=== PATIENT | female | born 2000 | race Caucasian/White ===

== ENCOUNTER 2023-08-04 13:13 | Emergency (ER) | payer MEDICAID, SELFPAY ==
--- NOTE | ~2023-08-04 | CT_ITS ---
EXAMINATION: CT abdomen pelvis w IV con CLINICAL INFORMATION: Reason for Exam Lower abd pain, blood bowel movements COMPARISON: No prior CT available for comparison. TECHNIQUE: Multidetector volumetric imaging was performed from the superior aspect of the liver through the pubic symphysis 85 mL of Omnipaque 350 injected Sagittal and coronal reformatted images were obtained on the technologist's workstation. This CT examination was performed using dose optimization techniques as appropriate, variously including the following: *Automated exposure control *Adjustment of mA and/or kV according to patient size (this includes techniques or standardized protocols for targeted exams where dose is matched to indication/reason for exam; i.e. extremities or head) *Use of iterative reconstruction technique DLP: 362 mGy-cm FINDINGS: LOWER THORAX: Included lung bases are clear. HEPATOBILIARY: No focal hepatic lesions. No biliary ductal dilatation. GALLBLADDER: Gallbladder unremarkable. SPLEEN: Spleen is normal in size. PANCREAS: No focal mass or ductal dilatation. STOMACH AND GASTROINTESTINAL TRACT: Stomach is grossly unremarkable. There is no bowel distention or thickening. No CT evidence of appendicitis. ADRENALS: No adrenal nodules. KIDNEYS/URETERS: No hydronephrosis, stones or solid mass lesions. URINARY BLADDER: Partially decompressed. PELVIC VISCERA: Right adnexal pelvic cyst most likely of right ovarian origin 5.5 x 4.6 cm. Bulky uterus normal for patient's young age. Rectum and perirectal fat are clear. PERITONEUM: No free air or fluid. LYMPH NODES: No lymphadenopathy. VASCULAR:Abdominal aorta normal in size, no aneurysm found. BONES, ABDOMINAL WALL AND SOFT TISSUES: Age-appropriate changes of the spine and skeletal system, no destructive osteolytic or osteosclerotic bone lesion found CT/CT abdomen pelvis w IV con IMPRESSION: 1. No CT evidence of acute intra-abdominal process to explain patient's pain symptoms. No evidence of diverticulitis. No evidence of bowel obstruction. No free air or fluid. 2. Right adnexal pelvic cyst 5.5 cm most likely of right ovarian origin. Consider correlation with follow-up pelvic ultrasound. Findings likely represent a probable benign cyst. Recommend followup ultrasonography in 3-6 months.
[2023-08-04 13:25] VITALS: BP 102/67; PULSE 74; RESP 18; TEMP 36.6; O2SAT 99; BMI 19.6
--- NOTE | 2023-08-04 13:52 | ED.ABDPAIN ---
HPI - Abdominal Pain General Chief Complaint: Abdominal Pain Stated Complaint: Abd pain sent from urgent care Time Seen by Provider: 08/04/23 17:51 History of Present Illness HPI narrative: 22 y/o F patient; without significant PMH or PSH; presents with report of one week of bright red bowel movements. Associated with nausea without vomiting, lower abdominal cramping, and combination constipation/loose diarrhea. The patient states she had similar symptoms once before several months ago but it resolved within a short period so she did not seek further evaluation. The patient has never had a colonoscopy. She is currently followed by a PCP but has not yet seen them since her move to this area recently. She denies smoking, alcohol use, or recreational drug use. She is currently menstrating x1 day. Related Data Allergies Allergy/AdvReac Type Severity Reaction Status Date / Time No Known Allergies Allergy Verified 08/04/23 13:26 Review of Systems Review of Systems Yes all other systems are reviewed and are negative PMFSH Past Medical History Attestation statement: The following information was validated with the patient. Source: unable to obtain and old records reviewed Social History Social History Unable to assess alcohol history related to: Unknown Smoked in Last 30 Days: No Use of substances other than those prescribed or required for medical reasons: No Advance Directives: No Advance Directives Information Provided: No Do you have a plan to hurt others: No Plan Patient : No Physical Exam ED Vital Signs: Vital Signs - 24 hr 08/04/23 13:25 08/04/23 20:52 Temperature 97.9 F 97.9 F Pulse Rate 74 65 Respiratory Rate 18 16 Blood Pressure 102/67 109/64 Pulse Oximetry 99 98 Oxygen Delivery Method Room Air Room Air BMI result Body Mass Index 19.6 Patient is afebrile and hemodynamically stable. Const General: cooperative HENMT Head: Yes normal to inspection and Yes atraumatic Eyes General: appearance normal, both eyes and all related structures Pupils: Equal, round and reactive pupils present EOM: EOMs intact bilaterally Neck Neck: Yes normal visual inspection, Yes full ROM, Yes supple and No tender Chest Chest palpation & inspection: normal inspection of the chest and normal palpation of entire chest wall Resp Effort & Inspection: normal respiratory effort, able to speak in complete sentences and no respiratory distress Auscultation: clear to auscultation bilaterally Cardio Rate: regular rate Rhythm: regular rhythm Peripheral pulses: Peripheral pulses 2+ throughout GI Other: RLQ and LLQ abdominal tenderness with suprapubic tenderness Inspection: No Abdominal wall edema and No distended Palpation (GI): Soft to palpation, not firm, no guarding and not rigid Neuro Cranial nerves: Yes Equal, round and reactive pupils present Course Course Course Narrative: This is an RME done by WENDI Lu: Additional HPI, ROS, PE not included below will be deferred to primary provider. 22 year old female w/o known pmhx presents w/ abd pain, constipation and bloody stools x 1 week was told to come in to the ED by an urgent care. Appearance: Alert.? Oriented X3.? No acute cardiopulmonary distress distress.? Head: Normocephalic, atraumatic, no step-offs or deformities Neck: Normal inspection.? Neck supple.? CVS: Pulses normal.? Respiratory: No respiratory distress.? Skin: ? Normal skin color. Extremities: 5/5 strength to bilateral upper and lower extremities Neuro: Oriented X 3.? No motor deficit.? No sensory deficit. Reevaluation(s) Reevaluation #1: Patient is afebrile and hemodynamically stable. Reviewed laboratory studies. Mild leukopenia 4.7. Mild anemia 11.8 (unclear baseline but patient states she has required oral iron supplementation previously). Elevated eosinophils. Ordered CT Abdomen/Pelvis. CT without acute abnormalities. Patient already expressed understanding of known right adnexal pelvic cyst. Patient has appointment with PCP in mid-August, recommended patient call Monday08/06/2023 to arrange earlier appointment. Patient is hemodynamically stable with only mild anemia. Appropriate for out-patient follow up but reviewed the signs/symptoms for which to return to the emergency department. Plan: Discharge to home with PCP and GI follow up Return precautions given Medical Decision Making Lab Data 08/04/23 14:01 08/04/23 14:01 Labs: Lab Results 08/04/23 Range/Units 14:01 WBC 4.7 L (4.8-10.8) X10*3/uL RBC 3.71 L (4.20-5.50) X10*6/uL Hgb 11.8 L (12.0-16.0) g/dl Hct 33.0 L (37.0-47.0) % MCV 88.9 (80.0-98.0) fL MCH 31.8 (27.0-33.0) pg MCHC 35.8 H (31.0-35.0) g/dl RDW 12.4 (11.0-16.0) % Plt Count 279 (160-400) X10*3/uL MPV 9.6 (9.4-12.3) fL Immature Gran % (Auto) 0.2 (0.0-0.4) % Neut % (Auto) 52.8 (45-73) % Lymph % (Auto) 35.0 (20-40) % [place] % (Auto) 5.6 (2-11) % Eos % (Auto) 5.8 H (0-4) % Baso % (Auto) 0.6 (0-2) % Lymph # (Auto) 1.6 (1.2-4.9) X10*3/uL [place] # (Auto) 0.3 (0.1-1.2) X10*3/uL Eos # (Auto) 0.3 (0.0-0.4) X10*3/uL Baso # (Auto) 0.0 (0.0-0.2) X10*3/uL Abs Immat Gran (auto) 0.01 (0.00-0.03) X10*3/uL Absolute Neuts (auto) 2.5 (2.0-8.3) x10*3/uL Absolute Nucleated RBC 0.000 (0.0-0.012) X10*3/uL Nucleated RBC % (auto) 0.0 (0.0-0.2) /100WBC PT 12.0 (11.1-13.3) SEC INR 1.0 (0.9-1.1) Sodium 141 (135-145) mmol/L Potassium 4.0 (3.3-5.1) mmol/L Chloride 106 (96-108) mmol/L Carbon Dioxide 26 (22-29) mmol/L Anion Gap 13 (12-20) BUN 6 L (9-16) mg/dL Creatinine 0.69 (0.5-1.4) mg/dL Estim Creat Clear Calc 106.2 Estimated GFR > 60 Random Glucose 92 (60-115) mg/dL Calcium 9.3 (8.4-10.2) mg/dL Magnesium 2.1 (1.6-2.6) mg/dL Total Bilirubin 0.6 (0.0-1.0) mg/dL AST 20 (5-31) U/L ALT 15 (0-31) U/L Alkaline Phosphatase 47 (39-117) U/L Total Protein 7.6 (6.5-8.0) g/dL Albumin 4.5 (3.5-5.0) g/dL Lipase 23 (8-78) U/L Beta HCG, Quant < 2 mIU/mL Radiology Impression Discussion of test interpretation with radiology: I have reviewed the radiologist's reading. Radiologist Impression: EXAMINATION: CT abdomen pelvis w IV con CLINICAL INFORMATION: Reason for Exam Lower abd pain, blood bowel movements COMPARISON: No prior CT available for comparison. TECHNIQUE: Multidetector volumetric imaging was performed from the superior aspect of the liver through the pubic symphysis 85 mL of Omnipaque 350 injected Sagittal and coronal reformatted images were obtained on the technologist's workstation. This CT examination was performed using dose optimization techniques as appropriate, variously including the following: *Automated exposure control *Adjustment of mA and/or kV according to patient size (this includes techniques or standardized protocols for targeted exams where dose is matched to indication/reason for exam; i.e. extremities or head) *Use of iterative reconstruction technique DLP: 362 mGy-cm FINDINGS: LOWER THORAX: Included lung bases are clear. HEPATOBILIARY: No focal hepatic lesions. No biliary ductal dilatation. GALLBLADDER: Gallbladder unremarkable. SPLEEN: Spleen is normal in size. PANCREAS: No focal mass or ductal dilatation. STOMACH AND GASTROINTESTINAL TRACT: Stomach is grossly unremarkable. There is no bowel distention or thickening. No CT evidence of appendicitis. ADRENALS: No adrenal nodules. KIDNEYS/URETERS: No hydronephrosis, stones or solid mass lesions. URINARY BLADDER: Partially decompressed. PELVIC VISCERA: Right adnexal pelvic cyst most likely of right ovarian origin 5.5 x 4.6 cm. Bulky uterus normal for patient's young age. Rectum and perirectal fat are clear. PERITONEUM: No free air or fluid. LYMPH NODES: No lymphadenopathy. VASCULAR:Abdominal aorta normal in size, no aneurysm found. BONES, ABDOMINAL WALL AND SOFT TISSUES: Age-appropriate changes of the spine and skeletal system, no destructive osteolytic or osteosclerotic bone lesion found CT/CT abdomen pelvis w IV con IMPRESSION: 1. No CT evidence of acute intra-abdominal process to explain patient's pain symptoms. No evidence of diverticulitis. No evidence of bowel obstruction. No free air or fluid. 2. Right adnexal pelvic cyst 5.5 cm most likely of right ovarian origin. Consider correlation with follow-up pelvic ultrasound. Findings likely represent a probable benign cyst. Recommend followup ultrasonography in 3-6 months. Medications Administered Discontinued Medications Generic Name Dose Route Start Last Admin Trade Name Freq PRN Reason Stop Dose Admin Iohexol 100 ml 08/04/23 18:22 08/04/23 18:23 Iohexol 350 Mg/Ml 100 Ml Infus..Btl IV 08/04/23 18:23 85 ml ONCE ONE Administration Discharge Plan Discharge Clinical Impression: Bright red rectal bleeding Patient Disposition: Home, Self-Care Instructions: Rectal Bleeding (ED) Additional Instructions: As we discussed, you were seen today for lower abdominal cramping and bleeding from your rectum. Your CT scan showed only your known right ovarian cyst. It did not show a reason for your rectal bleeding. Recommend you call your PCP on Monday08/06/2023 to arrange an earlier re-evaluation. Return immediately to the emergency department for: Lightheadedness/passing out Worsening abdominal pain Inability to eat or drink due to pain or nausea [place] [facility] [place] [facility] [place] Group] - 1 week Print Language: Liberian
[2023-08-04 14:08] LABS: MANUAL DIFF FLAG NO
[2023-08-04 14:09] LABS: Basophils Percent Auto 0.6 % (0-2); Eosinophils Absolute Auto 0.3 X10*3/uL (0.0-0.4); Eosinophils Percent Auto 5.8 % (0-4); Hemoglobin 11.8 g/dl (12.0-16.0); Imm Gran Abs Auto 0.01 X10*3/uL (0.00-0.03); Imm Gran Pct Auto 0.2 % (0.0-0.4); Lymphocytes Absolute Auto 1.6 X10*3/uL (1.2-4.9); Mean Corpuscular HGB Conc 35.8 g/dl (31.0-35.0); Mean Corpuscular Hemoglobin 31.8 pg (27.0-33.0); Mean Corpuscular Volume 88.9 fL (80.0-98.0); Mean Platelet Volume 9.6 fL (9.4-12.3); Monocytes Absolute Auto 0.3 X10*3/uL (0.1-1.2); Monocytes Percent Auto 5.6 % (2-11); Neutrophils Absolute Auto 2.5 x10*3/uL (2.0-8.3); Neutrophils Percent Auto 52.8 % (45-73); Platelet Count 279 X10*3/uL (160-400); Red Blood Count 3.71 X10*6/uL (4.20-5.50); Red Cell Distribution Width 12.4 % (11.0-16.0); White Blood Count 4.7 X10*3/uL (4.8-10.8)
[2023-08-04 14:35] LABS: Alanine Aminotransferase 15 U/L (0-31); Albumin Level 4.5 g/dL (3.5-5.0); Alkaline Phosphatase 47 U/L (39-117); Anion Gap 13 (12-20); Aspartate Amino Transferase 20 U/L (5-31); Bilirubin Total 0.6 mg/dL (0.0-1.0); Blood Urea Nitrogen 6 mg/dL (9-16); Calcium 9.3 mg/dL (8.4-10.2); Carbon Dioxide 26 mmol/L (22-29); Chloride 106 mmol/L (96-108); Creatinine Clr Calc Pharmacy 106.2; Estimated Glomerular Filt Rate > 60; Glucose Random 92 mg/dL (60-115); Magnesium 2.1 mg/dL (1.6-2.6); Sodium 141 mmol/L (135-145); Total Protein 7.6 g/dL (6.5-8.0)
[2023-08-04 14:36] LABS: HCG Quantitative < 2 mIU/mL
[2023-08-04] MEDS: iohexoL 350 MG/ML 100 ML INFUS..BTL IV (18:23)
[2023-08-04 18:33] LABS: Lipase 23 U/L (8-78)
[2023-08-04 20:52] VITALS: BP 109/64; PULSE 65; RESP 16; TEMP 36.6; O2SAT 98
[2023-08-04 21:14] VITALS: BP 109/64; PULSE 65; RESP 16; TEMP 36.6; O2SAT 98
== END 2023-08-04 21:19 | disposition home or self-care (01) ==
PROVIDERS: Physician Assistant; Emergency Provider Emergency Medicine
DX: K62.5 Hemorrhage of anus and rectum (principal); R11.0 Nausea; K59.00 Constipation, unspecified; R10.9 Unspecified abdominal pain
CPT/HCPCS: 36415; 74177; 80053; 83690; 83735; 84702; 85025; 85610; 99284; Q9967

== ENCOUNTER 2023-09-01 12:25 | Outpatient (AMB) | payer MEDICAID, SELFPAY ==
--- NOTE | 2023-09-01 12:32 | A.OFFVIS_ITS ---
Vital Signs 09/01/23 12:41 Height 5 ft 5 in Weight 117 lb 4.575 oz BMI 19.5 BP 105/51 L Blood Pressure Location Rt brachial Position Sitting Pulse 84 Intake Visit Reasons: ER follow up Intake Note: Ángela presents to in office visit today as a new patient for ER follow up. CC: Patient went to the ER on 08/03 with c/o one week of bright red blood with bowel movements. Associated with nausea, lower abdominal cramping, and combination constipation/loose diarrhea. The patient stated that she had similar symptoms once before several months ago but it resolved within a short period so she did not seek further evaluation. Today she reports that she continues having sometimes constipation sometimes and other times diarrhea, abdominal cramping, occasional GERD, and abdominal cramps, Independent Crop Consultant Required: No Allergies No Known Allergies Allergy (Verified 09/01/23 12:53) HPI HPI ER follow up: Details: 23-year-old female here for initial evaluation of rectal bleeding. She has referred by the emergency department because she has not yet established a primary care. She will see Dr. Nelson in the near future. P.m. X Anemia - takes ironpills SURGICAL HISTORY Pt denies * ALLERGIES: NKDA * [employer] LABS: Laboratory Tests 08/04/23 14:01 WBC 4.7 L RBC 3.71 L Hgb 11.8 L Hct 33.0 L MCV 88.9 MCH 31.8 Plt Count 279 Estimated GFR > 60 Total Bilirubin 0.6 AST 20 ALT 15 Alkaline Phosphatase [address] ABDOMEN AND PELVIS 08/04/23 FINDINGS: LOWER THORAX: Included lung bases are clear. HEPATOBILIARY: No focal hepatic lesions. No biliary ductal dilatation. GALLBLADDER: Gallbladder unremarkable. SPLEEN: Spleen is normal in size. PANCREAS: No focal mass or ductal dilatation. STOMACH AND GASTROINTESTINAL TRACT: Stomach is grossly unremarkable. There is no bowel distention or thickening. No CT evidence of appendicitis. ADRENALS: No adrenal nodules. KIDNEYS/URETERS: No hydronephrosis, stones or solid mass lesions. URINARY BLADDER: Partially decompressed. PELVIC VISCERA: Right adnexal pelvic cyst most likely of right ovarian origin 5.5 x 4.6 cm. Bulky uterus normal for patient's young age. Rectum and perirectal fat are clear. PERITONEUM: No free air or fluid. LYMPH NODES: No lymphadenopathy. VASCULAR:Abdominal aorta normal in size, no aneurysm found. BONES, ABDOMINAL WALL AND SOFT TISSUES: Age-appropriate changes of the spine and skeletal system, no destructive osteolytic or osteosclerotic bone lesion found CT/CT abdomen pelvis w IV con IMPRESSION: 1. No CT evidence of acute intra-abdominal process to explain patient's pain symptoms. No evidence of diverticulitis. No evidence of bowel obstruction. No free air or fluid. 2. Right adnexal pelvic cyst 5.5 cm most likely of right ovarian origin. Consider correlation with follow-up pelvic ultrasound. Findings likely represent a probable benign cyst. Recommend followup ultrasonography in 3-6 months. REVIEW OF ER NOTES 08/04/2023 Additional Instructions: As we discussed, you were seen today for lower abdominal cramping and bleeding from your rectum. Your CT scan showed only your known right ovarian cyst. It did not show a reason for your rectal bleeding. Recommend you call your PCP on Monday08/06/2023 to arrange an earlier re- evaluation. Return immediately to the emergency department for: Lightheadedness/passing out Worsening abdominal pain Inability to eat or drink due to pain or nausea CORRESPONDENCE On 08/29/23 @ 09:51 Pipe Petit Wrote To SheelaToshia Per patient she has an appointment on 09/07 to establish care with Dr. Pennington. Previously use to live in [place]. PCP information added to chart. On 08/28/23 @ 14:05 Toshia Coker Wrote To Pipe Petit Please call this patient and find out who her primary care provider is. According to the ER note she is supposed to see a new primary in mid August and we will need this information. She is on my schedule for Monday. On 08/28/23 @ 13:58 Toshia Coker Wrote To SheelaToshia (2) The ER note states that she has an initial primary care appointment in ?mid August. ? I would call the patient 1st and find out who will be her primary care provider. I certainly can see her but this is not an emergency since she was completely stable and there were no acute findings on CT scan. This likely is a hemorrhoid issue. On 06/10/24 @ 11:28 Su Wallis Wrote To Sheela,June June this pt was seen in ED and does not have PCP she is on scheduled for the . will you see her? TODAY'S VISIT She has had a few episodes of rectal bleeding. She was bleeding for a whole week and the entire bowel was red. She had CIC and was pushing/straining with her stools prior to the onset of sx. She would have abd cramping in the lower abd with nausea. She had another episode 2 weeks after the ER. Now she is moving her bowels every am and some RB with wiping. She has always suffered CIC. She has tried to eat more fiber. She takes iron pills so this may cause CIC. I recommend senna and fiber Benefiber or Citrucel or generic. She had a paternal uncle of CRC, father had hemorrhoids. Return office visit in 6 weeks to evaluate and titrate her constipation therapy. [facility] Surgical History No pertinent past surgical history Family History Sister Eye cancer Bladder cancer Social History Alcohol intake: never Patient Tobacco Use Status: Never used Tobacco Review of Systems Const Denies fatigue, Denies fever(s), Denies night sweats, Denies poor appetite and Denies weight loss ENT Reports Normal hearing present, Denies dental pain, Denies dysphagia, Denies hearing loss, Denies mouth pain, Denies odynophagia, Denies throat swelling, Denies tongue swelling and Reports other (Dentition adequate) Card Reports no additional complaints Resp Reports no additional complaints GI Details: Denies abdominal pain, Denies melena, Denies bloating, Reports hematochezia, Reports constipation, Denies GI cramping, Denies dysphagia, Denies excessive flatus, Denies early satiety, Denies heartburn, Denies diarrhea, Denies nausea, Denies odynophagia, Denies vomiting and Denies hematemesis Skin/Breast Denies pruritus, Denies lesions, Denies rash and Denies jaundice Neuro Reports Normal hearing present and Denies Abnormal speech present Endo Denies fatigue Aller/Immun Denies throat swelling and Denies tongue swelling Physical Exam Vital Signs: Last Vital Signs Pulse 84 09/01/23 12:41 BP 105/51 L 09/01/23 12:41 BMI result Body Mass Index 19.5 Const General: cooperative, no acute distress, well developed and well groomed Nutritional Appearance: average body habitus and well nourished Orientation/consciousness: oriented to person, oriented to place and oriented to time Limitations: No language barrier HEENT Head: Yes normocephalic and Yes atraumatic Eyes General: appearance normal, both eyes and all related structures Pupils: Equal, round and reactive pupils present Neck Neck: Yes normal visual inspection and Yes no lymphadenopathy Thyroid: Thyroid normal Resp Effort & Inspection: normal respiratory effort and able to speak in complete sentences Auscultation: clear to auscultation bilaterally Cardio Rate: regular rate Rhythm: regular rhythm Heart sounds: Normal, physiologic split S2 sound present Peripheral pulses: radial pulses present and posterior tibial pulses present GI Inspection: No distended and No Abdominal panniculus present Palpation (GI): Soft to palpation, nontender, no guarding, not rigid and No hepatosplenomegaly present Percussion: Yes normal to percussion Auscultation: normal bowel sounds Rectal Exam - Female: deferred Skin General skin exam: no rashes or lesions noted, turgor normal, skin not dry, no jaundice, No spider nevi and no striae Rashes: no rashes Nails: normal Neuro General: oriented to person, oriented to place and oriented to time Cranial nerves: Yes Equal, round and reactive pupils present and Yes Normal hearing present Speech: No Abnormal speech present Extrem General: Yes normal to inspection, No clubbing, No cyanosis and No edema Psych Appearance: grossly normal and well kempt Mental Status: mental status grossly normal Speech and movement: Normal speech and movement present Affect: normal affect Attitude: cooperative Thought process: Normal thought process present and not confabulating Thought content: Normal thought content present Insight: Limited insight present (Psych) Judgement: Limited judgement present (Psych) Results Reviewed Results Reviewed: Laboratory Tests 08/04/23 14:01 WBC 4.7 L RBC 3.71 L Hgb 11.8 L Hct 33.0 L MCV 88.9 MCH 31.8 Plt Count 279 Estimated GFR > 60 Total Bilirubin 0.6 AST 20 ALT 15 Alkaline Phosphatase [address] ABDOMEN AND PELVIS 08/04/23 FINDINGS: LOWER THORAX: Included lung bases are clear. HEPATOBILIARY: No focal hepatic lesions. No biliary ductal dilatation. GALLBLADDER: Gallbladder unremarkable. SPLEEN: Spleen is normal in size. PANCREAS: No focal mass or ductal dilatation. STOMACH AND GASTROINTESTINAL TRACT: Stomach is grossly unremarkable. There is no bowel distention or thickening. No CT evidence of appendicitis. ADRENALS: No adrenal nodules. KIDNEYS/URETERS: No hydronephrosis, stones or solid mass lesions. URINARY BLADDER: Partially decompressed. PELVIC VISCERA: Right adnexal pelvic cyst most likely of right ovarian origin 5.5 x 4.6 cm. Bulky uterus normal for patient's young age. Rectum and perirectal fat are clear. PERITONEUM: No free air or fluid. LYMPH NODES: No lymphadenopathy. VASCULAR:Abdominal aorta normal in size, no aneurysm found. BONES, ABDOMINAL WALL AND SOFT TISSUES: Age-appropriate changes of the spine and skeletal system, no destructive osteolytic or osteosclerotic bone lesion found CT/CT abdomen pelvis w IV con IMPRESSION: 1. No CT evidence of acute intra-abdominal process to explain patient's pain symptoms. No evidence of diverticulitis. No evidence of bowel obstruction. No free air or fluid. 2. Right adnexal pelvic cyst 5.5 cm most likely of right ovarian origin. Consider correlation with follow-up pelvic ultrasound. Findings likely represent a probable benign cyst. Recommend followup ultrasonography in 3-6 months. REVIEW OF ER NOTES 08/04/2023 Additional Instructions: As we discussed, you were seen today for lower abdominal cramping and bleeding from your rectum. Your CT scan showed only your known right ovarian cyst. It did not show a reason for your rectal bleeding. Recommend you call your PCP on Monday08/06/2023 to arrange an earlier re- evaluation. Return immediately to the emergency department for: Lightheadedness/passing out Worsening abdominal pain Inability to eat or drink due to pain or nausea Assessment & Plan Assessment & Plan (1) Rectal bleeding: Code(s): K62.5 - Hemorrhage of anus and rectum Category: Medical Plan She has had a few episodes of rectal bleeding. She was bleeding for a whole week and the entire bowel was red. She had CIC and was pushing/straining with her stools prior to the onset of sx. She would have abd cramping in the lower abd with nausea. She had another episode 2 weeks after the ER. Now she is moving her bowels every am and some RB with wiping. She has always suffered CIC. She has tried to eat more fiber. She takes iron pills so this may cause CIC. I recommend senna and fiber Benefiber or Citrucel or generic. She had a paternal uncle of CRC, father had hemorrhoids. Return office visit in 6 weeks to evaluate and titrate her constipation therapy. Orders: Orders Colonoscopy - GI Use Only 09/01/23 K62.5 - Hemorrhage of anus and rectum Medications: New bisacodyl (Dulcolax (bisacodyl)) 10 mg (2 x 5 mg) PO BEDTIME 4 tabs 0RF 2 days peg 3350-electrolytes 236-22.74-6.74 -5.86 gram (Golytely) until fecal effluent is clear; do not exceed a total volume of 2,000 mL 240 mL PO Q10M 4,000 mL 0RF 1 day Z12.11 - Encounter for screening for malignant neoplasm of colon hydrocortisone 2.5% (Proctosol HC) 1 appl VT BID PRN 30 grams 3RF hemorrhoids Coding Level of Care Code New Pt Level 3 (39225) Diagnoses Rectal bleeding K62.5
[2023-09-01 12:41] VITALS: BP 105/51; PULSE 84; BMI 19.5
== END 2023-09-01 13:34 | disposition home or self-care (01) ==
LOC: HO.HGI 12:25
PROVIDERS: PCP Internal Medicine; Visit Provider Nurse Practitioner
DX: K62.5 Hemorrhage of anus and rectum (principal)
CPT/HCPCS: 99203

== ENCOUNTER → 2023-09-01 12:25 | Outpatient (BNVA) | payer MEDICAID, SELFPAY | PROVIDERS: PCP Internal Medicine; Visit Provider Nurse Practitioner | DX: K62.5 Hemorrhage of anus and rectum (principal); K59.04 Chronic idiopathic constipation | CPT/HCPCS: 99212 ==

== ENCOUNTER 2023-09-27 09:16 | Outpatient (REF) | payer OTHER, SELFPAY ==
[2023-09-27 14:14] LABS: MANUAL DIFF FLAG NO
[2023-09-27 15:17] LABS: Basophils Percent Auto 0.5 % (0-2); Eosinophils Absolute Auto 0.1 X10*3/uL (0.0-0.4); Eosinophils Percent Auto 2.3 % (0-4); Hematocrit 33.5 % (37.0-47.0); Hemoglobin 11.7 g/dl (12.0-16.0); Imm Gran Abs Auto 0.02 X10*3/uL (0.00-0.03); Imm Gran Pct Auto 0.3 % (0.0-0.4); Lymphocytes Absolute Auto 1.5 X10*3/uL (1.2-4.9); Lymphocytes Percent Auto 24.4 % (20-40); Mean Corpuscular HGB Conc 34.9 g/dl (31.0-35.0); Mean Corpuscular Hemoglobin 31.4 pg (27.0-33.0); Mean Corpuscular Volume 89.8 fL (80.0-98.0); Mean Platelet Volume 10.3 fL (9.4-12.3); Monocytes Absolute Auto 0.3 X10*3/uL (0.1-1.2); Monocytes Percent Auto 4.2 % (2-11); Neutrophils Absolute Auto 4.1 x10*3/uL (2.0-8.3); Neutrophils Percent Auto 68.3 % (45-73); Platelet Count 261 X10*3/uL (160-400); Red Blood Count 3.73 X10*6/uL (4.20-5.50); Red Cell Distribution Width 12.6 % (11.0-16.0)
[2023-09-27 15:55] LABS: Alanine Aminotransferase 16 U/L (0-31); Albumin Level 4.5 g/dL (3.5-5.0); Alkaline Phosphatase 47 U/L (39-117); Anion Gap 9 (12-20); Aspartate Amino Transferase 18 U/L (5-31); Bilirubin Total 0.6 mg/dL (0.0-1.0); Blood Urea Nitrogen 7 mg/dL (9-16); Calcium 9.5 mg/dL (8.4-10.2); Carbon Dioxide 27 mmol/L (22-29); Chloride 106 mmol/L (96-108); Estimated Glomerular Filt Rate > 60; Glucose Random 109 mg/dL (60-115); Magnesium 2.3 mg/dL (1.6-2.6); Sodium 138 mmol/L (135-145); Total Protein 7.2 g/dL (6.5-8.0)
[2023-09-27 16:04] LABS: Ferritin 54 ng/mL (10-122)
[2023-09-27 16:44] LABS: Vitamin B12 1810 pg/mL (200-900)
== END 2023-09-27 09:17 | disposition home or self-care (01) ==
LOC: HO.LAB 09:16
PROVIDERS: PCP Internal Medicine; Visit Provider Internal Medicine
DX: F32.9 Major depressive disorder, single episode, unspecified (principal); F41.8 Other specified anxiety disorders; K62.5 Hemorrhage of anus and rectum; N83.209 Unspecified ovarian cyst, unspecified side
CPT/HCPCS: 36415; 80053; 82607; 82728; 82746; 83735; 84443; 85025

== ENCOUNTER 2023-10-11 11:02 | Outpatient (AMB) | payer MEDICAID, SELFPAY ==
[2023-10-11 11:18] VITALS: BP 99/55; PULSE 81; BMI 19.0
--- NOTE | 2023-10-11 11:18 | A.OFFVIS_ITS ---
Vital Signs 10/11/23 11:18 Height 5 ft 5 in Weight 114 lb 3.191 oz BMI 19.0 BP 99/55 L Blood Pressure Location Lt brachial Position Sitting Pulse 81 Intake Visit Reasons: ROIDS, CIC RB Intake Note: Ángela presents to in office visit today in follow up of CIC and rectal bleeding. CC: Patient states that she is having a lot of rectal bleeding and seeing a lot of blood clots. She also states that her hemorrhoid also feels bigger. Per patient she was not feeling too good last week and did not have an appetite. She also reports getting a lot of headaches, and GERD. Pants Presser Automatic Required: No Accompanied by: Self / Same As Patient Allergies No Known Allergies Allergy (Verified 10/11/23 11:31) HPI HPI ROIDS, CIC RB: Details: Assessment & Plan (1) Rectal bleeding: Code(s): K62.5 - Hemorrhage of anus and rectum Category: Medical Plan She has had a few episodes of rectal bleeding. She was bleeding for a whole week and the entire bowel was red. She had CIC and was pushing/straining with her stools prior to the onset of sx. She would have abd cramping in the lower abd with nausea. She had another episode 2 weeks after the ER. Now she is moving her bowels every am and some RB with wiping. She has always suffered CIC. She has tried to eat more fiber. She takes iron pills so this may cause CIC. I recommend senna and fiber Benefiber or Citrucel or generic. She had a paternal uncle of CRC, father had hemorrhoids. Return office visit in 6 weeks to evaluate and titrate her constipation therapy. Orders: Orders Colonoscopy - GI Use Only 09/01/23 K62.5 - Hemorrhage of anus and rectum Medications: New bisacodyl (Dulcolax (bisacodyl)) 10 mg (2 x 5 mg) PO BEDTIME 4 tabs 0RF 2 days peg 3350-electrolytes 236-22.74-6.74 -5.86 gram (Golytely) until fecal effluent is clear; do not exceed a total volume of 2,000 mL 240 mL PO Q10M 4,000 mL 0RF 1 day Z12.11 - Encounter for screening for malignant neoplasm of colon hydrocortisone 2.5% (Proctosol HC) 1 appl MI BID PRN 30 grams 3RF hemorrhoids COLONOSCOPY BIOPSY CORRESPONDENCE On 08/29/23 @ 09:51 Pipe Petit Wrote To Coker Per patient she has an appointment on 09/07 to establish care with Dr. Pennington. Previously use to live in [place]. PCP information added to chart. On 08/28/23 @ 14:05 Sheela Wrote To Pipe Petit Please call this patient and find out who her primary care provider is. According to the ER note she is supposed to see a new primary in mid August and we will need this information. She is on my schedule for Monday. On 08/28/23 @ 13:58 SheelaJune Wrote To SheelaJune (2) The ER note states that she has an initial primary care appointment in ?mid August. ? I would call the patient 1st and find out who will be her primary care provider. I certainly can see her but this is not an emergency since she was completely stable and there were no acute findings on CT scan. This likely is a hemorrhoid issue. On 08/28/23 @ 11:28 Su Wallis Wrote To Coker June this pt was seen in ED and does not have PCP she is on scheduled for the . will you see her? TODAY'S VISIT She is only using the cream when she remembers. She used the bisacodyl and it helped but there were only 2 in the bottle. She is having more bleeding, at time clots and my bottom feels sore. This is c/w hemorrhoidal bleeding. I STRESS she needs to use the cream more consistently and for 2 weeks straight bid. She may be moving to [facility] and wants the scope sooner, but this is likely not possible unless she is admitted. She can consider being being put on a cancellation list. ROV 6 week [facility] Surgical History No pertinent past surgical history Family History Sister Eye cancer Bladder cancer Social History Alcohol intake: never Patient Tobacco Use Status: Never used Tobacco Review of Systems Const Denies fatigue, Denies fever(s), Denies night sweats, Denies poor appetite and Denies weight loss ENT Reports Normal hearing present, Denies dental pain, Denies dysphagia, Denies hearing loss, Denies mouth pain, Denies odynophagia, Denies throat swelling, Denies tongue swelling and Reports other (Dentition adequate) Card Reports no additional complaints Resp Reports no additional complaints GI Details: Denies abdominal pain, Denies melena, Denies bloating, Reports hematochezia, Denies constipation, Denies GI cramping, Denies dysphagia, Denies excessive flatus, Denies early satiety, Denies heartburn, Denies diarrhea, Denies nausea, Denies odynophagia, Denies vomiting and Denies hematemesis Skin/Breast Denies pruritus, Denies lesions, Denies rash and Denies jaundice Neuro Reports Normal hearing present and Denies Abnormal speech present Endo Denies fatigue Aller/Immun Denies throat swelling and Denies tongue swelling Physical Exam Vital Signs: Last Vital Signs Pulse 81 10/11/23 11:18 BP 99/55 L 10/11/23 11:18 BMI result Body Mass Index 19.0 Const General: cooperative, no acute distress, well developed and well groomed Nutritional Appearance: average body habitus and well nourished Orientation/consciousness: oriented to person, oriented to place and oriented to time Limitations: No language barrier HEENT Head: Yes normocephalic and Yes atraumatic Eyes General: appearance normal, both eyes and all related structures Pupils: Equal, round and reactive pupils present Neck Neck: Yes normal visual inspection and Yes no lymphadenopathy Thyroid: Thyroid normal Resp Effort & Inspection: normal respiratory effort and able to speak in complete sentences Auscultation: clear to auscultation bilaterally Cardio Rate: regular rate Rhythm: regular rhythm Heart sounds: Normal, physiologic split S2 sound present Peripheral pulses: radial pulses present and posterior tibial pulses present GI Inspection: No distended and No Abdominal panniculus present Palpation (GI): Soft to palpation, nontender, no guarding, not rigid and No hepatosplenomegaly present Percussion: Yes normal to percussion Auscultation: normal bowel sounds Rectal Exam - Female: deferred Skin General skin exam: no rashes or lesions noted, turgor normal, skin not dry, no jaundice, No spider nevi and no striae Rashes: no rashes Nails: normal Neuro General: oriented to person, oriented to place and oriented to time Cranial nerves: Yes Equal, round and reactive pupils present and Yes Normal hearing present Speech: No Abnormal speech present Extrem General: Yes normal to inspection, No clubbing, No cyanosis and No edema Psych Appearance: grossly normal and well kempt Mental Status: mental status grossly normal Speech and movement: Normal speech and movement present Affect: normal affect Attitude: cooperative Thought process: Normal thought process present and not confabulating Thought content: Normal thought content present Insight: Fair insight present (Psych) and Limited insight present (Psych) Judgement: Fair judgement present (Psych) and Limited judgement present (Psych) Assessment & Plan Assessment & Plan (1) Rectal bleeding: Code(s): K62.5 - Hemorrhage of anus and rectum Category: Medical (2) Chronic idiopathic constipation: Code(s): K59.04 - Chronic idiopathic constipation Category: Medical Plan She is only using the cream when she remembers. She used the bisacodyl and it helped but there were only 2 in the bottle. She is having more bleeding, at time clots and my bottom feels sore. This is c/w hemorrhoidal bleeding. I STRESS she needs to use the cream more consistently and for 2 weeks straight bid. She may be moving to [facility] and wants the scope sooner, but this is likely not possible unless she is admitted. She can consider being being put on a cancellation list. ROV 6 week Medications: Changed From bisacodyl (Dulcolax (bisacodyl)) 10 mg (2 x 5 mg) PO BEDTIME 2 days 4 tabs 0RF K59.04 - Chronic idiopathic constipation, K62.5 - Hemorrhage of anus and rectum To bisacodyl (Dulcolax (bisacodyl)) 10 mg (2 x 5 mg) PO BEDTIME 60 tabs 6RF 30 days K59.04 - Chronic idiopathic constipation, K62.5 - Hemorrhage of anus and rectum Coding Level of Care Code Est Pt Level 3 (65317) Diagnoses Rectal bleeding K62.5 Chronic idiopathic constipation K59.04
== END 2023-10-11 12:27 | disposition home or self-care (01) ==
PROVIDERS: PCP Internal Medicine; Visit Provider Nurse Practitioner
DX: K62.5 Hemorrhage of anus and rectum (principal); K59.04 Chronic idiopathic constipation
CPT/HCPCS: 99213

== ENCOUNTER → 2023-10-11 11:02 | Outpatient (BNVA) | payer OTHER, SELFPAY | PROVIDERS: PCP Internal Medicine; Visit Provider Nurse Practitioner | DX: K62.5 Hemorrhage of anus and rectum (principal); K59.04 Chronic idiopathic constipation | CPT/HCPCS: 99212 ==

== ENCOUNTER 2023-10-13 10:53 | Outpatient (REF) | payer OTHER, SELFPAY ==
--- NOTE | ~2023-10-13 | US_ITS ---
EXAMINATION: US PELVIS CLINICAL INFORMATION: Ovarian cysts, last menstrual period 10/03/2023. COMPARISON: CT abdomen and pelvis of 08/04/2023. TECHNIQUE: Ultrasound of the pelvis is performed using both transabdominal and transvaginal transducers along with Doppler. The patient declined transvaginal ultrasound images. Limited visualization due to bowel gas and body habitus. FINDINGS: Uterus is anteverted and measures 9.1 x 3.4 x 4.5 cm. Endometrial thickness is 5 mm. Small amount of free fluid. Patient declined transvaginal ultrasound. Limited visualization due to bowel gas and body habitus. Left ovary measures 3.4 x 2.6 x 1.6 cm, volume 7.4 mL and is grossly unremarkable. Right ovary measures 8.8 x 6.6 x 5.6 cm, volume 170.3 mL. There is a 6.6 x 5.2 x 5.9 cm complex cyst with nodular mural irregularity and diffuse internal echoes. CT scan of 08/04/2023 demonstrated a 5.5 x 4.6 cm right adnexal cyst felt to likely be right ovarian. US/US pelvic complete IMPRESSION: Right ovarian 6.6 cm complex cyst with nodular mural irregularity and diffuse internal echoes. CT scan of 08/04/2023 demonstrated a 5.5 x 4.6 cm right adnexal cyst felt to likely be right ovarian. Gynecologic consultation and possible MRI recommended to determine further management.
== END 2023-10-13 10:54 | disposition home or self-care (01) ==
LOC: HO.US 10:53
PROVIDERS: PCP Internal Medicine; Visit Provider Internal Medicine
DX: N83.209 Unspecified ovarian cyst, unspecified side (principal)
CPT/HCPCS: 76856

== ENCOUNTER 2023-11-03 11:11 | Outpatient (AMB) | payer OTHER, SELFPAY ==
[2023-11-03 11:34] VITALS: BP 110/60; BMI 19.6
--- NOTE | 2023-11-03 11:34 | A.OFFVIS_ITS ---
Vital Signs 11/03/23 11:34 Height 5 ft 5 in Weight 118 lb BMI 19.6 BP 110/60 Intake Visit Reasons: CALL CENTER RN Ovarian Cyst Mother Tester Required: No Information Interpreted: clinical only Social Organization Professor: Social Organization Professor Present Allergies No Known Allergies Allergy (Verified 11/03/23 11:34) Medication List - Last Reconciled 11/03/23 by Marylin Lassiter CNM ascorbate calcium (vitamin C) 500 mg PO DAILY bisacodyl (Dulcolax (bisacodyl)) 10 mg (2 x 5 mg) PO BEDTIME 30 days cholecalciferol (vitamin D3) 50 mcg PO DAILY hydrocortisone 2.5% (Proctosol HC) 1 appl PA BID PRN magnesium 200 mg PO DAILY multivitamin 1 tab PO DAILY omega 9-dqc-ciw-fish oil 60-90-500 mg (Fish Oil) 1 cap PO DAILY Is last menstrual period known: Yes Last menstrual period: 10/08/23 HPI HPI CALL CENTER RN Ovarian Cyst: Details: Patient is here being seen as a new patient apparently referred from her primary though no referral is in the system.. She says she moved here from [place] about a year ago and [facility] exams which she called a Pap smear and told her she had yeast and BV various times. She also said that other OB GYNs of told her in the past in [place] that she had an ovarian cyst on the right side and to just keep an eye on it. She was seen in the emergency room the spring for rectal bleeding because of constipation and during that time they did of scan which showed an ovarian cyst on the right side and then her doctor Dr. baker ordered follow-up ultrasound which has now showed the same cyst. She says her doctor gave her some small orange pills to take at night to help her with constipation and they are helping and she is having a bowel movement every morning. She is not sexually active and has not been since 10/14/2022. When she is sexually active she uses condoms she has never been on control pills but does not like the idea of the wants to stay away from them. She does not have any other medical problems but she is getting evaluated for the constipation and has a colonoscopy coming up. She is wondering what she should do about this ovarian cyst. She is not scheduled for pelvic today but will be scheduled. She is not having any particular symptoms now. On abdominal palpation she is nontender and she says she has some awareness of some tenderness on the right but she is not overtly tender. PFSH Surgical History No pertinent past surgical history Family History Sister Eye cancer Bladder cancer Social History Alcohol intake: never Patient Tobacco Use Status: Never used Tobacco Female Reproductive History Menstrual Age of Menarche: 8 Duration of menses: 6-7 days Date of last menstrual period: 10/08/23 control method: none Total pregnancies: 0 Date of last pap smear: 07/09/22 (negative,per patient) History of abnormal pap smear: No Physical Exam Vital Signs: Last Vital Signs BP 110/60 11/03/23 11:34 BMI result Body Mass Index 19.6 Const Other: abd nontender, flat. ( wears tight spandex shorts under jeans) Results Reviewed Results Reviewed: Patient: Ángela De Los Santos MR#: [id number] : 2000 Acct:[id number] Age/Sex: 23 / F ADM Date: 10/13/23 Loc: HO.US Attending Dr: Irina Pennington MD Ordering Physician: Irina Pennington MD Date of Service: 10/13/23 Procedure(s): US pelvic complete Accession Number(s): [id number] cc: Irina Pennington MD~ EXAMINATION: US PELVIS CLINICAL INFORMATION: Ovarian cysts, last menstrual period 10/03/2023. COMPARISON: CT abdomen and pelvis of 08/04/2023. TECHNIQUE: Ultrasound of the pelvis is performed using both transabdominal and transvaginal transducers along with Doppler. The patient declined transvaginal ultrasound images. Limited visualization due to bowel gas and body habitus. FINDINGS: Uterus is anteverted and measures 9.1 x 3.4 x 4.5 cm. Endometrial thickness is 5 mm. Small amount of free fluid. Patient declined transvaginal ultrasound. Limited visualization due to bowel gas and body habitus. Left ovary measures 3.4 x 2.6 x 1.6 cm, volume 7.4 mL and is grossly unremarkable. Right ovary measures 8.8 x 6.6 x 5.6 cm, volume 170.3 mL. There is a 6.6 x 5.2 x 5.9 cm complex cyst with nodular mural irregularity and diffuse internal echoes. CT scan of 08/04/2023 demonstrated a 5.5 x 4.6 cm right adnexal cyst felt to likely be right ovarian. US/US pelvic complete IMPRESSION: Right ovarian 6.6 cm complex cyst with nodular mural irregularity and diffuse internal echoes. CT scan of 08/04/2023 demonstrated a 5.5 x 4.6 cm right adnexal cyst felt to likely be right ovarian. Gynecologic consultation and possible MRI recommended to determine further management. Dictated By: Kimberley Wayne MD Signed By: <Electronically signed by Kimberley Wayne MD in OV> 10/30/23 1302 DD/ 1119 TD/TT: Transcript [place] [id number] CT Scan Report Signed Patient: Ángela De Los Santos MR#: [id number] : 2000 Acct:[id number] Age/Sex: 22 / F ADM Date: 08/04/23 Loc: .ED Attending Dr: Ordering Physician: Natalie Lovell MD Date of Service: 08/04/23 Procedure(s): CT abdomen pelvis w IV con Accession Number(s): [id number] cc: Natalie Lovell MD; Physician,Unknown ~ EXAMINATION: CT abdomen pelvis w IV con CLINICAL INFORMATION: Reason for Exam Lower abd pain, blood bowel movements COMPARISON: No prior CT available for comparison. TECHNIQUE: Multidetector volumetric imaging was performed from the superior aspect of the liver through the pubic symphysis 85 mL of Omnipaque 350 injected Sagittal and coronal reformatted images were obtained on the technologist's workstation. This CT examination was performed using dose optimization techniques as appropriate, variously including the following: *Automated exposure control *Adjustment of mA and/or kV according to patient size (this includes techniques or standardized protocols for targeted exams where dose is matched to indication/reason for exam; i.e. extremities or head) *Use of iterative reconstruction technique DLP: 362 mGy-cm FINDINGS: LOWER THORAX: Included lung bases are clear. HEPATOBILIARY: No focal hepatic lesions. No biliary ductal dilatation. GALLBLADDER: Gallbladder unremarkable. SPLEEN: Spleen is normal in size. PANCREAS: No focal mass or ductal dilatation. STOMACH AND GASTROINTESTINAL TRACT: Stomach is grossly unremarkable. There is no bowel distention or thickening. No CT evidence of appendicitis. ADRENALS: No adrenal nodules. KIDNEYS/URETERS: No hydronephrosis, stones or solid mass lesions. URINARY BLADDER: Partially decompressed. PELVIC VISCERA: Right adnexal pelvic cyst most likely of right ovarian origin 5.5 x 4.6 cm. Bulky uterus normal for patient's young age. Rectum and perirectal fat are clear. PERITONEUM: No free air or fluid. LYMPH NODES: No lymphadenopathy. VASCULAR:Abdominal aorta normal in size, no aneurysm found. BONES, ABDOMINAL WALL AND SOFT TISSUES: Age-appropriate changes of the spine and skeletal system, no destructive osteolytic or osteosclerotic bone lesion found CT/CT abdomen pelvis w IV con IMPRESSION: 1. No CT evidence of acute intra-abdominal process to explain patient's pain symptoms. No evidence of diverticulitis. No evidence of bowel obstruction. No free air or fluid. 2. Right adnexal pelvic cyst 5.5 cm most likely of right ovarian origin. Consider correlation with follow-up pelvic ultrasound. Findings likely represent a probable benign cyst. Recommend followup ultrasonography in 3-6 months. Dictated By: Miguel Sal MD Signed By: <Electronically signed by Miguel Sal MD in OV> 08/04/232049 DD/ 26 Assessment & Plan Assessment & Plan (1) Ovarian cyst: Code(s): N83.209 - Unspecified ovarian cyst, unspecified side Category: Medical (2) Chronic idiopathic constipation: Code(s): K59.04 - Chronic idiopathic constipation Category: Medical (3) Rectal bleeding: Code(s): K62.5 - Hemorrhage of anus and rectum Category: Medical (4) Cervical cancer screening: Comment: Needs Pap- to be done at next visit with pelvic exam. 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 She may have had a Pap smear but she does not have the results of it so she should have a Pap smear at her next visit during which we should do a pelvic exam and Pap smear. She is not scheduled for that today. Indeed there is no referral present but the patient has been referred for discussion of this ovarian cyst. Review the abdominal pelvic CT scan done via the emergency room and the follow- up ultrasound done September there has been slight interval increase in the ovarian cyst.. Discussed sometimes the concern can be that ovarian cysts can get larger and can sometimes rupture be very painful. Discussed also the they often times are managed with use of oral contraceptives to help decrease ovarian function therefore decrease the cyst. In the meantime discussing that aside from next visit requiring pelvic exam, investigation as to the best way to follow her ovarian cysts and manage needs to be considered. discussed w gynecologic consultation, patient needs to be referred to be [facility] handstitching machine collar feller Oncology. Patient should have several lab tests done 1st CA 125, CEA, CA 19 -9,LDH, AFP. Patient to go to the lab today at the hospital to get the labs patient to be reappointed with me within the next couple of weeks for her basic handstitching machine collar feller annual exam and Pap smear which we do not have evidence that she has had, while we were awaiting the referral visit to [facility] handstitching machine collar feller Oncology. The patient was enquiring how quickly this would happen because she is planning to move back to [place]. She said she is planning to stick around at least till the colonoscopy is done on November 16. Orders: Orders Alpha Fetoprotein Today N83.209 - Unspecified ovarian cyst, unspecified side Carbohydrate Antigen 19-9 Today N83.209 - Unspecified ovarian cyst, unspecified side CA-125 Today N83.209 - Unspecified ovarian cyst, unspecified side Carcinoembryonic Antigen Today N83.209 - Unspecified ovarian cyst, unspecified side Lactate Dehydrogenase Today N83.209 - Unspecified ovarian cyst, unspecified side Referrals Gynecologic Oncology Referral N83.209 - Unspecified ovarian cyst, unspecified side Coding Level of Care Code New Pt Level 4 (39348) Diagnoses Ovarian cyst N83.209 Chronic idiopathic constipation K59.04 Rectal bleeding K62.5 Cervical cancer screening Z12.4 Time Spent (min) 45 Comment 100% on history, PE and management.
== END 2023-11-03 13:00 | disposition home or self-care (01) ==
LOC: HO.HWSM 11:11
PROVIDERS: PCP Internal Medicine; Visit Provider Advanced Practice Midwife
DX: N83.209 Unspecified ovarian cyst, unspecified side (principal); K59.04 Chronic idiopathic constipation; K62.5 Hemorrhage of anus and rectum; Z12.4 Encounter for screening for malignant neoplasm of cervix
CPT/HCPCS: 99204

== ENCOUNTER 2023-11-03 11:11 | Outpatient (REF) | payer OTHER, SELFPAY ==
[2023-11-03 15:10] LABS: Carcinoembryonic Antigen < 1.73 ng/mL; Lactate Dehydrogenase 156 U/L (122-220)
[2023-11-07 09:04] LABS: Carbohydrate Antigen 19-9 26 U/mL (<34)
[2023-11-08 06:24] LABS: CA-125 39 U/mL (<35)
== END 2023-11-03 11:12 | disposition home or self-care (01) ==
LOC: HO.LAB 11:11
PROVIDERS: PCP Internal Medicine; Visit Provider Advanced Practice Midwife
DX: N83.291 Other ovarian cyst, right side (principal); K59.04 Chronic idiopathic constipation; K62.5 Hemorrhage of anus and rectum; Z12.4 Encounter for screening for malignant neoplasm of cervix
CPT/HCPCS: 36415; 82105; 82378; 83615; 86301; 86304; 99202